=== PATIENT | female | born 1980 | race American Indian/Alaskan Native ===

== ENCOUNTER 2016-12-16 09:16 | Emergency (ER) | payer MEDICAID ==
[2016-12-16 09:24] VITALS: TEMP 98.3; O2SAT 99
--- NOTE | 2016-12-16 09:38 | ED PDOC ---
Arrival/HPI - General Historian: Patient - History of Present Illness Time/Duration: Prior to Arrival Symptom Onset: Sudden Symptom Course: Unchanged Quality: Other (no pain) - General Chief Complaint: Medical Clearance Time Seen by Provider: 12/16/16 09:24 - History of Present Illness Narrative History of Present Illness (Text): 12/16/16 09:35 36yr old female presents today with depression. pt states there are problems with her marriage. denies any complaints. states she doesnt want to talk. per ems there was an argument at home but the patient denies an argument. states police told her to come to ER. (Louann Ingram) Past Medical History - Provider Review Nursing Documentation Reviewed: Yes - Travel History Have you recently traveled outside [place] w/in the past 3 mons?: No - Tetanus Immunization Tetanus Immunization: Unknown - Psychiatric Hx Substance Use: No Family/Social History - Physician Review Nursing Documentation Reviewed: Yes Family/Social History: Unknown Family HX Smoking Status: Never Smoked Hx Alcohol Use: Yes Frequency of alcohol use: Socially Hx Substance Use: No Allergies/Home Meds Allergies/Adverse Reactions: Allergies No Known Allergies Allergy (Verified 12/16/16 09:22) Home Medications: Home Meds Medication Instructions Recorded Confirmed No Known Home Med 12/16/16 12/16/16 Review of Systems - Review of Systems Constitutional: absent: Fatigue, Fevers Respiratory: absent: SOB, Cough Cardiovascular: absent: Chest Pain, Palpitations Gastrointestinal: absent: Abdominal Pain, Nausea, Vomiting Genitourinary Female: absent: Dysuria Musculoskeletal: absent: Arthralgias Skin: absent: Rash, Pruritis Neurological: absent: Headache, Dizziness Psychiatric: Anxiety, Depression Physical Exam Vital Signs Reviewed: Yes Temperature: Afebrile Blood Pressure: Normal Pulse: Regular Respiratory Rate: Normal Appearance: Positive for: Well-Appearing, Non-Toxic, Comfortable Pain Distress: None Mental Status: Positive for: Alert and Oriented X 3 - Systems Exam Head: Present: Atraumatic Mouth: Present: Moist Mucous Membranes Neck: Present: Normal Range of Motion Respiratory/Chest: Present: Clear to Auscultation, Good Air Exchange. No: Respiratory Distress, Accessory Muscle Use Cardiovascular: Present: Regular Rate and Rhythm, Normal S1, S2. No: Murmurs Abdomen: No: Tenderness Skin: Present: Warm, Dry, Normal Color. No: Rashes Psychiatric: Present: Alert, Oriented x 3, Depressed Mood Vital Signs Temp Pulse Resp BP Pulse Ox 12/16/16 09:16 98.3 F 62 20 118/79 99 Medical Decision Making ED Course and Treatment: 12/16/16 10:09 I was available for consultation during PA evaluation. The chart reviewed by me , and I agree with disposition. The documented history was done by the physician clinical biostatistician. The documented physical exam was done by physician clinical biostatistician. The documented procedures were done by physician clinical biostatistician. (Mynor Zavala) 12/16/16 09:43 Patient is nontoxic well-appearing in no distress vital signs are stable. CBC WNL CMP WNL Tylenol WNL Salicylate WNL Alcohol level WNL Urine drug screen wnl UA; wnl pt refused chest xray ekg sinus bradycardia at 58 bpm normal axis normal intervals no ST elevations pt is medically cleared for PES evaluation Patient was seen and evaluated by PES screener: jl pt cleared psychiatrically for discharge Impression; depression Follow up with the [facility] follow up with the primary care physician within the next 2 days return immediately if symptoms worsen,persist or if new symptoms develop. (Louann Ingram) - Lab Interpretations Lab Results: 12/16/16 09:42 12/16/16 09:42 Lab Results 12/16/16 09:42: Alcohol, Quantitative < 10 12/16/16 09:42: Salicylates < 1 L, Acetaminophen < 10.0 L 12/16/16 09:42: Sodium 140, Potassium 3.7, Chloride 104, Carbon Dioxide 26, Anion Gap 14, BUN 7, Creatinine 0.6, Est GFR ( Amer) > 60, Est GFR (Non- Af Amer) > 60, Random Glucose 105, Calcium 9.5, Total Bilirubin 0.7, AST 26, ALT 22, Alkaline Phosphatase 58, Total Protein 7.9, Albumin 4.4, Globulin 3.5, Albumin/Globulin Ratio 1.3 12/16/16 09:42: WBC 5.8, RBC 4.10, Hgb 12.5, Hct 37.3, MCV 91.0, MCH 30.5, MCHC 33.5, RDW 13.0, Plt Count 207, MPV 10.4, Gran % 49.9 L, Lymph % (Auto) 43.2 H, [place] % (Auto) 6.2 H, Eos % (Auto) 0.5 L, Baso % (Auto) 0.2, Gran # 2.90, Lymph # 2.5, Norton # 0.4, Eos # 0.0, Baso # 0.01 12/16/16 09:35: Urine Opiates Screen Negative, Urine Methadone Screen Negative, Ur Barbiturates Screen Negative, Ur Phencyclidine Scrn Negative, Ur Amphetamines Screen Negative, U Benzodiazepines Scrn Negative, U Oth Cocaine Metabols Negative, U Cannabinoids Screen Negative 12/16/16 09:35: Urine Color Yellow, Urine Appearance Clear, Urine pH 6.5, Ur Specific [place] 1.020, Urine Protein Trace H, Urine Glucose (UA) Negative, Urine Ketones Negative, Urine Blood Negative, Urine Nitrate Negative, Urine Bilirubin Negative, Urine Urobilinogen 0.2, Ur Leukocyte Esterase Negative, Urine RBC 0 - 2, Urine WBC 0 - 2, Ur Epithelial Cells 10 - 12, Urine Bacteria Rare Disposition/Present on Arrival - Present on Arrival Any Indicators Present on Arrival: No History of DVT/PE: No History of Uncontrolled Diabetes: No Urinary Catheter: No History of Decub. Ulcer: No History Surgical Site Infection Following: None - Disposition Have Diagnosis and Disposition been Completed?: Yes Disposition Time: 10:52 Patient Plan: Discharge - Disposition Diagnosis: Depression Disposition: HOME/ ROUTINE Condition: GOOD Additional Instructions: Follow up with the [facility] follow up with the primary care physician within the next 2 days return immediately if symptoms worsen,persist or if new symptoms develop. Referrals: Katty Cox MD [Primary Care Provider] - Follow up with primary [facility] [Outside] - Follow up with primary Shaunna Bean MD [Staff Provider] - Follow up with primary Forms: [employer] ([place])
[2016-12-16 09:50] LABS: BASO # 0.01 K/mm3 (0.0-2.0); BASO % 0.2 % (0.0-3.0); EOS % 0.5 % (1.5-5.0); GRAN # 2.9 (1.4-6.5); GRAN % 49.9 % (50.0-68.0); HEMATOCRIT 37.3 % (36.0-48.0); LYMPH # 2.5 (1.2-3.4); LYMPH % 43.2 % (22.0-35.0); MEAN CORPUSCULAR HEMOGLOBIN 30.5 pg (25.0-35.0); MEAN CORPUSCULAR HGB CONC 33.5 g/dl (31.0-37.0); MEAN PLATELET VOLUME 10.4 fl (7.0-11.0); MONO # 0.4 (0.1-0.6); MONO % 6.2 % (1.0-6.0); WHITE BLOOD COUNT 5.8 10^3/ul (4.5-11.0)
[2016-12-16 10:02] LABS: ALB/GLOB RATIO 1.3 (1.1-1.8); ALKALINE PHOSPHATASE 58 U/L (38-126); ALT/SGPT 22 U/L (7-56); AST/SGOT 26 U/L (14-36); BILIRUBIN,TOTAL 0.7 mg/dL (0.2-1.3); BLOOD UREA NITROGEN 7 mg/dL (7-21); CALCIUM 9.5 mg/dL (8.4-10.5); CARBON DIOXIDE 26 mmol/L (21-33); CHLORIDE 104 mmol/L (95-110); GFR AFRICAN-AMERICAN > 60; GLUCOSE,RANDOM 105 mg/dL (70-110); POTASSIUM 3.7 mmol/L (3.6-5.0); SODIUM 140 mmol/L (132-148); TOTAL PROTEIN 7.9 g/dL (5.8-8.3)
[2016-12-16 10:13] LABS: PH,URINE 6.5 (4.7-8.0); URINE BILIRUBIN NEGATIVE (NEGATIVE); URINE BLOOD NEGATIVE (NEGATIVE); URINE GLUCOSE (UA) NEGATIVE (NEGATIVE); URINE KETONE NEGATIVE (NEGATIVE); URINE LEUKOCYTE ESTERASE NEGATIVE Leu/uL (NEGATIVE); URINE PROTEIN TRACE mg/dL (<30 mg/dL); URINE UROBILINOGEN 0.2 E.U./dL (<1 E.U./dL)
[2016-12-16 10:14] LABS: URINE APPEARANCE CLEAR (CLEAR); URINE COLOR YELLOW (YELLOW)
[2016-12-16 10:17] LABS: URINE BACTERIA RARE (NEG); URINE RBC 0 - 2 /hpf (0-2); URINE WBC 0 - 2 /hpf (0-6)
[2016-12-16 10:57] VITALS: BP 132/78; PULSE 77; RESP 18
--- NOTE | 2016-12-17 07:17 | CARD ---
APPROVED REPORT EKG Measurement Heart [id number] <Conclusion> Sinus bradycardia Possible Left atrial enlargement Left ventricular hypertrophy Abnormal ECG
== END 2016-12-16 10:58 | disposition home or self-care (01) ==
LOC: MERGE 09:16 → ED 09:16
DX: F32.9 Major depressive disorder, single episode, unspecified (principal)